=== PATIENT | female | born 1930 | race African-American/Black ===

== ENCOUNTER → 2018-01-14 | Outpatient (CLI) | payer OTHER | END | disposition home or self-care (01) | LOC: ECHO 09:54 | DX: I08.1 Rheumatic disorders of both mitral and tricuspid valves (principal); I31.3 Pericardial effusion (noninflammatory); I47.1 Supraventricular tachycardia | CPT/HCPCS: 93306 ==

== ENCOUNTER → 2019-01-25 | Outpatient (CLI) | payer OTHER ==
--- NOTE | 2019-01-25 14:33 | CARD ---
MR#: [id number] Date of Study: 01/25/2019 Ordering Physician: DENNYS ROSS, Referring Physician: DENNYS ROSS Tech: Tawanna Long RDCS APPROVED REPORT EXAM: Two-dimensional and M-mode echocardiogram with Doppler and color Doppler. Other Information Quality : Good INDICATION Sick Sinus Syndrome Surgery/Intervention Pacemaker: 2D DIMENSIONS RVDd3.3 (2.9-3.5cm)Left Atrium(2D)3.9 (1.6-4.0cm) IVSd1.0 (0.7-1.1cm)Aortic Root(2D)2.9 (2.0-3.7cm) LVDd4.3 (3.9-5.9cm)LVOT Diameter2.2 (1.8-2.4cm) PWd1.0 (0.7-1.1cm)LVDs1.8 (2.5-4.0cm) FS (%) 30.0 %SV74.2 ml LVEF(%)60.0 (>50%) Aortic Valve AoV Peak Gino.123.9cm/sAoV VTI23.8cm AO Peak GR.6.1mmHgLVOT Peak Gino.123.9cm/s LVOT VTI 25.01cmAO Mean GR.3mmHg RINA (VMAX)3.62wi3NKS (VTI)4.08cm2 Mitral Valve MV E Pdrsydji31.7cm/sMV DECEL [id number] MV A Fowdhfgr772.9cm/sMV FUL58ot E/A Ratio0.7MVA (PHT)2.67cm2 TDI E/Lateral E'6.3E/Medial E'9.7 Tricuspid Valve TR P. Uoieucfj123hi/sRAP [id number] TR Peak Gr.88vzLkMYUN67bsAu Pulmonary Vein S1 Qtajtmkv75.5cm/sD2 Vopaoynu30.0cm/s LEFT VENTRICLE The left ventricle is normal size. There is normal left ventricular wall thickness. The left ventricu lar systolic function is normal and the ejection fraction is within normal range. The Ejection Fracti on is 60-65%. There is normal LV segmental wall motion. Transmitral Doppler flow pattern is Grade I-a bnormal relaxation pattern. RIGHT VENTRICLE The right ventricle is normal size. The right ventricular systolic function is normal. There is a pac emaker lead in the right ventricle. ATRIA The left atrium size is normal. The right atrium size is normal. A pacemaker is seen in the right atr ium consistent with history. The interatrial septum is intact with no evidence for an atrial septal d efect or patent foramen ovale as noted on 2-D or Doppler imaging. AORTIC VALVE The aortic valve is calcified but opens well. Doppler and Color Flow revealed trace aortic regurgitat ion. There is no significant aortic valvular stenosis. MITRAL VALVE The mitral valve is calcified but opens well. There is no evidence of mitral valve prolapse. There is no mitral valve stenosis. Doppler and Color-flow revealed mild mitral regurgitation. TRICUSPID VALVE The tricuspid valve is normal in structure and function. Doppler and Color Flow revealed trace tricus pid regurgitation. The PA pressure was estimated at 25 mmHg. There is no tricuspid valve stenosis. PULMONIC VALVE The pulmonic valve is not well visualized. Doppler and Color Flow revealed trace pulmonic valvular re gurgitation. There is no pulmonic valvular stenosis. GREAT VESSELS The aortic root is normal in size. The ascending aorta is mildly dilated at 3.8 cm. The IVC is normal in size and collapses >50% with inspiration. PERICARDIAL EFFUSION There is a trace circumferential pericardial effusion with no hemodynamic significance. Critical Notification Critical Value: No <Conclusion> The left ventricle is normal size. The left ventricular systolic function is normal and the ejection fraction is within normal range. The Ejection Fraction is 60-65%. There is a pacemaker lead in the right ventricle. The right atrium size is normal. A pacemaker is seen in the right atrium consistent with history. There is no significant aortic valvular stenosis. Doppler and Color Flow revealed trace aortic regurgitation. Doppler and Color-flow revealed mild mitral regurgitation. Doppler and Color Flow revealed trace tricuspid regurgitation. The PA pressure was estimated at 25 mmHg. There is a trace circumferential pericardial effusion with no hemodynamic significance. Signed by : Haroon Ya MD Electronically Approved : 01/25/2019 14:33:03
== END | disposition home or self-care (01) ==
LOC: ECHO 12:44
PROVIDERS: ATTEND Internal Medicine Cardiovascular Disease
DX: I34.0 Nonrheumatic mitral (valve) insufficiency (principal); I49.5 Sick sinus syndrome
CPT/HCPCS: 93306